=== PATIENT | male | born 1930 | race Caucasian/White ===

== ENCOUNTER → 2018-11-26 | Outpatient (CLI) | payer OTHER ==
[~2018-11-26] MED LIST: ASPI81TA27 PO; ATOR40TA52 PO; DONE5TAB11 PO; GEMF600T7 PO; METO25TA5 PO
[2018-11-26 09:45] LABS: Basophils # (auto) 0 uL; Basophils % (auto) 0.1 % (0.0-2.0); Eosinophils # (auto) 0.1 uL; Eosinophils % (auto) 0.9 % (0.0-7.0); Hematocrit 42.7 % (41.0-53.0); Hemoglobin 13.9 g/dL (13.5-17.5); Lymphocytes # (auto) 1.5 uL; Lymphocytes % (auto) 12.6 % (10.0-50.0); Mean Corpuscular Hemoglobin 29.1 pg (28.0-32.0); Mean Corpuscular Hgb Conc. 32.5 g/dL (32.0-36.0); Mean Corpuscular Volume 89.6 fL (80.0-100.0); Monocytes # (auto) 0.8 uL; Monocytes % (auto) 6.7 % (0.0-12.0); Neutrophils # (auto) 9.3 uL; Neutrophils % (auto) 79.7 % (37.0-80.0); Platelet Count (auto) 213 10^3/uL (140-450); Red Blood Cells 4.77 10^6/uL (4.5-5.90); Red Cell Distribution Width 14.6 % (11.8-14.3); White Blood Cell 11.7 10^3/uL (4.4-10.8)
[2018-11-26 10:44] LABS: Free T4 (Free Thyroxine) 0.91 ng/dL (0.89-1.76)
[2018-11-26 10:45] LABS: Folate (Folic Acid) > 24.00 ng/mL (5.38-24)
[2018-11-26 10:47] LABS: Cholesterol 138 mg/dL (< 200); HDL Cholesterol 35 mg/dL (40-59); LDL Cholesterol 62 mg/dL (< 100); Triglycerides 271 mg/dL (< 150)
== END | disposition home or self-care (01) ==
LOC: LAB 08:40
PROVIDERS: ATTEND Internal Medicine
DX: I10 Essential (primary) hypertension (principal); F03.90 Unspecified dementia, unspecified severity, without behavioral disturbance, psychotic disturbance, mood disturbance, and anxiety; E78.5 Hyperlipidemia, unspecified
CPT/HCPCS: 36415; 80061; 82607; 82746; 83036; 84439; 84443; 85025

== ENCOUNTER 2019-01-06 13:40 | Inpatient (IN) | payer OTHER ==
[~2019-01-06] VITALS: Ht 185.4 cm; Wt 81.6 kg
[2019-01-06 14:44] LABS: Basophils # (auto) 0 uL; Basophils % (auto) 0.5 % (0.0-2.0); Eosinophils # (auto) 0.4 uL; Eosinophils % (auto) 3.9 % (0.0-7.0); Hematocrit 41.7 % (41.0-53.0); Hemoglobin 13.5 g/dL (13.5-17.5); Lymphocytes # (auto) 1.5 uL; Mean Corpuscular Hgb Conc. 32.4 g/dL (32.0-36.0); Mean Corpuscular Volume 89.4 fL (80.0-100.0); Monocytes # (auto) 0.6 uL; Monocytes % (auto) 6.8 % (0.0-12.0); Neutrophils # (auto) 6.6 uL; Neutrophils % (auto) 72.8 % (37.0-80.0); Platelet Count (auto) 196 10^3/uL (140-450); Red Blood Cells 4.67 10^6/uL (4.5-5.90); Red Cell Distribution Width 14.6 % (11.8-14.3); White Blood Cell 9.1 10^3/uL (4.4-10.8)
[2019-01-06] MEDS ORDERED: SODIUM CHLORIDE 0.9% 1,000 ML IVB ONE (14:54)
[2019-01-06 15:00] LABS: Albumin 3.4 g/dL (3.4-5.0); BUN/Creatinine Ratio 13.2; Calcium 8.8 mg/dL (8.5-10.1); Magnesium 2.8 mg/dL (1.6-2.6); Potassium 4.4 mmol/L (3.5-5.1)
[2019-01-06 15:03] LABS: Bilirubin, Total 0.9 mg/dL (0.2-1.0); Total Protein 7.5 g/dL (6.4-8.2)
[2019-01-06] MEDS ORDERED: cefTRIAXone 1GM/50ML D5W 50 ML IV ONE (15:15)
[2019-01-06] MEDS ORDERED: SODIUM CHLORIDE 0.9% 1,000 ML IV SCH (16:08)
[2019-01-06] MEDS ORDERED: ONDANSETRON HCL 4 MG/2 ML VIAL IV PRN (16:15)
[2019-01-06] MEDS ORDERED: ALBUTEROL SULF 2.5 MG/0.5ML(0.5%) NEB SOLN NEB PRN (16:15)
[2019-01-06] MEDS ORDERED: TEMAZEPAM 15 MG CAP PO PRN (16:15)
[2019-01-06] MEDS ORDERED: NITROGLYCERIN 0.4 MG SL TAB SL PRN (16:15)
[2019-01-06] MEDS ORDERED: MORPHINE SULF INJ 2 MG/ML SYRINGE 1ML IV PRN (16:15)
[2019-01-06] MEDS ORDERED: traMADol HCL 50 MG TAB PO PRN (16:15)
[2019-01-06] MEDS ORDERED: LACTULOSE 20Gm/30ML SOLN PO PRN (16:15)
[2019-01-06 16:35] VITALS: BP 120/57
[2019-01-06 16:45] VITALS: BP 122/63
[2019-01-06 18:03] LABS: Urine Bacteria NONE SEEN /hpf (None Seen); Urine Blood Negative /uL (Negative); Urine Specific Gravity 1.013 (1.001-1.035); Urine WBC <1 /hpf (0 - 3)
--- NOTE | 2019-01-06 18:06 | NUR ---
PRN MED NEB ASSESSMENT. PT DENIES SOB. NO DISTRESS NOTED AT THIS TIME. RA POX 96% HR 70 RR 18 BS ARE CLEAR AND DIMINISHED. TX NOT GIVEN.
[2019-01-06] MEDS ORDERED: LORazepam 0.5 MG TAB PO PRN (20:00)
[2019-01-06] MEDS ORDERED: METOPROLOL TARTRATE 25 MG TAB PO SCH (22:00)
[2019-01-06] MEDS ORDERED: DONEPEZIL HYDROCHLORIDE 5 MG TAB PO SCH (22:00)
[2019-01-06] MEDS ORDERED: GEMFIBROZIL 600 MG TAB PO SCH (22:00)
[2019-01-07] MEDS ORDERED: PANTOPRAZOLE 40 MG TAB PO SCH (10:00)
[2019-01-07] MEDS ORDERED: ASPirin-EC 81 mg tab PO SCH (10:00)
[2019-01-07] MEDS ORDERED: ENOXAPARIN SOD 40 MG/0.4 ML SYRINGE SC SCH (10:00)
== END 2019-01-06 17:17 | disposition left against medical advice (07) | DRG 190 ==
LOC: EDBD 13:40 → ER 13:40 → TELE 16:12
PROVIDERS: ADMIT Internal Medicine; ATTEND Internal Medicine
DX: J44.0 Chronic obstructive pulmonary disease with (acute) lower respiratory infection (principal); J18.9 Pneumonia, unspecified organism; E78.5 Hyperlipidemia, unspecified; F03.90 Unspecified dementia, unspecified severity, without behavioral disturbance, psychotic disturbance, mood disturbance, and anxiety; I11.0 Hypertensive heart disease with heart failure; I25.10 Atherosclerotic heart disease of native coronary artery without angina pectoris; Z53.21 Procedure and treatment not carried out due to patient leaving prior to being seen by health care provider; I50.9 Heart failure, unspecified; I67.2 Cerebral atherosclerosis; I70.0 Atherosclerosis of aorta; Z79.82 Long term (current) use of aspirin; I25.2 Old myocardial infarction; Z79.899 Other long term (current) drug therapy
CPT/HCPCS: 36415; 70450; 71045; 80053; 81001; 83605; 83735; 85025; 87040; 87076; 93005; 94761; 96361; 96365; G0378; J0696

== ENCOUNTER → 2019-04-14 | Outpatient (CLI) | payer OTHER ==
[2019-04-14 08:25] LABS: Basophils # (auto) 0 uL; Basophils % (auto) 0.7 % (0.0-2.0); Eosinophils # (auto) 0.5 uL; Eosinophils % (auto) 7.2 % (0.0-7.0); Hematocrit 41.4 % (41.0-53.0); Hemoglobin 13.4 g/dL (13.5-17.5); Lymphocytes # (auto) 1.7 uL; Lymphocytes % (auto) 24.8 % (10.0-50.0); Mean Corpuscular Hemoglobin 28.9 pg (28.0-32.0); Mean Corpuscular Hgb Conc. 32.5 g/dL (32.0-36.0); Monocytes # (auto) 0.5 uL; Monocytes % (auto) 7.4 % (0.0-12.0); Neutrophils # (auto) 4.2 uL; Neutrophils % (auto) 59.9 % (37.0-80.0); Nucleated Red Blood Cells % 0.1 %; Platelet Count (auto) 195 10^3/uL (140-450); Red Blood Cells 4.65 10^6/uL (4.5-5.90); Red Cell Distribution Width 14.1 % (11.8-14.3); White Blood Cell 7.1 10^3/uL (4.4-10.8)
[2019-04-14 08:41] LABS: Albumin 3.4 g/dL (3.4-5.0); Calcium 8.8 mg/dL (8.5-10.1); Potassium 4.3 mmol/L (3.5-5.1)
[2019-04-14 08:44] LABS: BUN/Creatinine Ratio 9.7; Bilirubin, Total 0.5 mg/dL (0.2-1.0); Total Protein 7.4 g/dL (6.4-8.2)
== END | disposition home or self-care (01) ==
LOC: LAB 08:09
PROVIDERS: ATTEND Internal Medicine
DX: I10 Essential (primary) hypertension (principal)
CPT/HCPCS: 36415; 80053; 85025

== ENCOUNTER → 2019-11-10 | Outpatient (CLI) | payer OTHER ==
[~2019-11-10] MED LIST changes: +ASPI-404 PO; -ASPI81TA27 PO
[2019-11-10 12:13] LABS: Urine WBC None Seen /hpf (0 - 3)
[2019-11-10 12:29] LABS: Basophils # (auto) 0 uL; Basophils % (auto) 0.4 % (0.0-2.0); Eosinophils # (auto) 0.5 uL; Eosinophils % (auto) 5.3 % (0.0-7.0); Hematocrit 46.3 % (41.0-53.0); Lymphocytes # (auto) 2.5 uL; Mean Corpuscular Hgb Conc. 32.4 g/dL (32.0-36.0); Mean Corpuscular Volume 89.4 fL (80.0-100.0); Monocytes # (auto) 0.6 uL; Monocytes % (auto) 6.2 % (0.0-12.0); Neutrophils # (auto) 6.1 uL; Neutrophils % (auto) 62.1 % (37.0-80.0); Platelet Count (auto) 215 10^3/uL (140-450); Red Blood Cells 5.18 10^6/uL (4.5-5.90); Red Cell Distribution Width 14.1 % (11.8-14.3); White Blood Cell 9.8 10^3/uL (4.4-10.8)
[2019-11-10 12:31] LABS: Urine Bacteria NONE SEEN /hpf (None Seen); Urine Blood Negative /uL (Negative); Urine Mucus FEW (None Seen); Urine Specific Gravity 1.018 (1.001-1.035)
[2019-11-10 12:39] LABS: Albumin 3.8 g/dL (3.4-5.0); Potassium 4.5 mmol/L (3.5-5.1)
[2019-11-10 12:43] LABS: BUN/Creatinine Ratio 14.3; Bilirubin, Total 0.6 mg/dL (0.2-1.0); Total Protein 7.8 g/dL (6.4-8.2)
== END | disposition home or self-care (01) ==
LOC: LAB 12:09
PROVIDERS: ATTEND Nurse Practitioner
DX: Z00.00 Encounter for general adult medical examination without abnormal findings (principal); E78.5 Hyperlipidemia, unspecified
CPT/HCPCS: 36415; 80053; 80061; 81001; 84443; 85025

== ENCOUNTER 2020-07-29 19:31 | Inpatient (IN) | payer OTHER ==
[~2020-07-29] VITALS: Ht 177.8 cm; Wt 73.8 kg
[~2020-07-29 19:31] MED LIST changes: -ASPI-404 PO; +ASPI-543 PO
[2020-07-29 20:42] LABS: Basophils # (auto) 0 10 ^3/uL (0-0.2); Basophils % (auto) 0.2 % (0.0-2.0); Eosinophils # (auto) 0.1 10 ^3/uL (0-0.8); Eosinophils % (auto) 0.6 % (0.0-7.0); Hematocrit 37.1 % (41.0-53.0); Hemoglobin 12.4 g/dL (13.5-17.5); Lymphocytes # (auto) 1.1 10 ^3/uL (0.4-5.4); Mean Corpuscular Hemoglobin 29.8 pg (28.0-32.0); Mean Corpuscular Hgb Conc. 33.3 g/dL (32.0-36.0); Mean Corpuscular Volume 89.5 fL (80.0-100.0); Monocytes # (auto) 0.7 10 ^3/uL (0-1.3); Monocytes % (auto) 6.5 % (0.0-12.0); Neutrophils # (auto) 8.3 10 ^3/uL (1.6-8.6); Neutrophils % (auto) 81.7 % (37.0-80.0); Nucleated Red Blood Cells % 0.1 %; Platelet Count (auto) 189 10^3/uL (140-450); Red Blood Cells 4.15 10^6/uL (4.5-5.90); Red Cell Distribution Width 13.6 % (11.8-14.3); White Blood Cell 10.2 10^3/uL (4.4-10.8)
[2020-07-29 20:57] LABS: Albumin 2.6 g/dL (3.4-5.0); Anion Gap 7 (5-15); Blood Urea Nitrogen 17 mg/dL (7-18); Calcium 8.5 mg/dL (8.5-10.1); Carbon Dioxide 24 mmol/L (21-32); Chloride 108 mmol/L (98-107); Glucose 123 mg/dL (74-106); Potassium 3.6 mmol/L (3.5-5.1); Sodium 139 mmol/L (136-145)
[2020-07-29 20:59] LABS: BUN/Creatinine Ratio 14.8; GFR African American 77 mL/min; GFR Non-African American 64 mL/min; INR 1.03 (0.9-1.15)
[2020-07-29 21:06] LABS: Alanine Aminotransferase 504 U/L (16-61); Alkaline Phosphatase 311 U/L (45-117); Aspartate Aminotransferase 446 U/L (15-37); Bilirubin, Total 1.5 mg/dL (0.2-1.0); Total Protein 6.9 g/dL (6.4-8.2)
[2020-07-29] MEDS ORDERED: ONDANSETRON HCL 4 MG/2 ML VIAL IV PRN (23:15)
[2020-07-29] MEDS ORDERED: HYDROcodone-ACET 5/325MG TAB PO PRN (23:15)
[2020-07-29] MEDS ORDERED: DOCUSATE SOD 100 MG CAP PO PRN (23:15)
[2020-07-29] MEDS: SODIUM CHLORIDE 0.9% 1,000 ML IV SCH (23:28)
[2020-07-30 04:08] LABS: Urine Bacteria FEW /hpf (None Seen); Urine Blood Negative /uL (Negative); Urine Mucus FEW (None Seen); Urine Specific Gravity 1.027 (1.001-1.035); Urine WBC 1 /hpf (0 - 3)
[2020-07-30 05:21] LABS: Basophils # (auto) 0 10 ^3/uL (0-0.2); Basophils % (auto) 0.2 % (0.0-2.0); Eosinophils # (auto) 0.2 10 ^3/uL (0-0.8); Eosinophils % (auto) 2.3 % (0.0-7.0); Hematocrit 36.5 % (41.0-53.0); Hemoglobin 12.1 g/dL (13.5-17.5); Lymphocytes # (auto) 1.3 10 ^3/uL (0.4-5.4); Lymphocytes % (auto) 13.7 % (10.0-50.0); Mean Corpuscular Hemoglobin 29.6 pg (28.0-32.0); Mean Corpuscular Volume 89.5 fL (80.0-100.0); Monocytes # (auto) 0.7 10 ^3/uL (0-1.3); Monocytes % (auto) 7.9 % (0.0-12.0); Neutrophils # (auto) 7.1 10 ^3/uL (1.6-8.6); Neutrophils % (auto) 75.9 % (37.0-80.0); Platelet Count (auto) 184 10^3/uL (140-450); Red Blood Cells 4.08 10^6/uL (4.5-5.90); Red Cell Distribution Width 14.2 % (11.8-14.3); White Blood Cell 9.4 10^3/uL (4.4-10.8)
[2020-07-30 05:40] LABS: Anion Gap 4 (5-15); Blood Urea Nitrogen 19 mg/dL (7-18); Calcium 8.6 mg/dL (8.5-10.1); Carbon Dioxide 25 mmol/L (21-32); Chloride 110 mmol/L (98-107); Glucose 107 mg/dL (74-106); Potassium 3.5 mmol/L (3.5-5.1); Sodium 139 mmol/L (136-145)
[2020-07-30 05:46] LABS: BUN/Creatinine Ratio 17.6; GFR African American 83 mL/min; GFR Non-African American 69 mL/min
[2020-07-30] MEDS ORDERED: cefTRIAXone 1GM/50ML D5W 50 ML IV SCH (10:00)
[2020-07-30] MEDS ORDERED: LORazepam 2MG/ML-1ML VIAL IM ONE (12:15)
[2020-07-30] MEDS ORDERED: LORazepam 2MG/ML-1ML VIAL IV PRN (17:15)
[2020-07-30] MEDS: SODIUM CHLORIDE 0.9% 1,000 ML IV SCH (19:05)
[2020-07-30] MEDS: DONEPEZIL HYDROCHLORIDE 5 MG TAB PO SCH (21:27)
[2020-07-30 21:38] VITALS: BP 148/86
[2020-07-30 22:00] VITALS: BP 148/86
[2020-07-30 22:37] LABS: Folate (Folic Acid) > 24.00 ng/mL (5.38-24)
[2020-07-31] MEDS ORDERED: MULTCAP45 PO (03:38)
[2020-07-31 05:00] VITALS: BP 148/82
[2020-07-31 07:23] LABS: Albumin 2.5 g/dL (3.4-5.0); Bilirubin, Direct 0.4 mg/dL (0-0.2)
[2020-07-31 07:26] LABS: Total Protein 6.4 g/dL (6.4-8.2)
[2020-07-31 07:36] LABS: Cholesterol 109 mg/dL (< 200); HDL Cholesterol 26 mg/dL (40-59); LDL Cholesterol 76 mg/dL (< 100); Triglycerides 110 mg/dL (< 150)
[2020-07-31 08:00] VITALS: BP 131/78
[2020-07-31] MEDS: SODIUM CHLORIDE 0.9% 1,000 ML IV SCH (08:35)
[2020-07-31 09:00] VITALS: BP 131/78
[2020-07-31] MEDS ORDERED: LACTULOSE 20Gm/30ML SOLN PO PRN (09:15)
[2020-07-31 17:00] VITALS: BP 150/92
[2020-07-31] MEDS: HALOPERIDOL LACTATE 5 MG/ML INJ VIAL IM PRN (20:40)
[2020-07-31] MEDS: DONEPEZIL HYDROCHLORIDE 5 MG TAB PO SCH (21:41)
[2020-07-31 22:00] VITALS: BP 145/78
[2020-08-01] MEDS: SODIUM CHLORIDE 0.9% 1,000 ML IV SCH ×2 (01:20→19:23)
[2020-08-01 06:27] LABS: Potassium 3.2 mmol/L (3.5-5.1)
[2020-08-01 06:37] LABS: Albumin 2.4 g/dL (3.4-5.0); BUN/Creatinine Ratio 14.4; Bilirubin, Total 1.3 mg/dL (0.2-1.0); Calcium 8.2 mg/dL (8.5-10.1); Magnesium 2.5 mg/dL (1.6-2.6); Total Protein 6.2 g/dL (6.4-8.2)
[2020-08-01 08:59] VITALS: BP 146/78
[2020-08-01 14:02] VITALS: BP 138/77
[2020-08-01] MEDS ORDERED: cefTRIAXone 1GM/50ML D5W 50 ML IV ONE (14:15)
[2020-08-01] MEDS ORDERED: metroNIDAZOLE 500MG/100ML 100 ML IV ONE (14:15)
[2020-08-01] MEDS: POTASSIUM CHL 20MEQ/100ML 100 ML IV SCH ×2 (16:40→19:23)
[2020-08-01 16:48] VITALS: BP 150/91
[2020-08-01 21:00] VITALS: BP 145/73
[2020-08-01] MEDS: metroNIDAZOLE 500MG/100ML 100 ML IV SCH (22:09)
[2020-08-01] MEDS: DONEPEZIL HYDROCHLORIDE 5 MG TAB PO SCH (22:09)
[2020-08-02 05:00] VITALS: BP 138/71
[2020-08-02] MEDS: metroNIDAZOLE 500MG/100ML 100 ML IV SCH ×3 (05:47→22:29)
[2020-08-02 06:02] LABS: Basophils # (auto) 0 10 ^3/uL (0-0.2); Basophils % (auto) 0.3 % (0.0-2.0); Eosinophils # (auto) 0.2 10 ^3/uL (0-0.8); Eosinophils % (auto) 1.2 % (0.0-7.0); Hematocrit 34.5 % (41.0-53.0); Hemoglobin 11.3 g/dL (13.5-17.5); Lymphocytes # (auto) 1.1 10 ^3/uL (0.4-5.4); Lymphocytes % (auto) 8.2 % (10.0-50.0); Mean Corpuscular Hemoglobin 29.6 pg (28.0-32.0); Mean Corpuscular Hgb Conc. 32.7 g/dL (32.0-36.0); Mean Corpuscular Volume 90.5 fL (80.0-100.0); Monocytes # (auto) 0.9 10 ^3/uL (0-1.3); Monocytes % (auto) 6.4 % (0.0-12.0); Neutrophils # (auto) 11.6 10 ^3/uL (1.6-8.6); Neutrophils % (auto) 83.9 % (37.0-80.0); Platelet Count (auto) 235 10^3/uL (140-450); Red Blood Cells 3.81 10^6/uL (4.5-5.90); Red Cell Distribution Width 13.8 % (11.8-14.3); White Blood Cell 13.8 10^3/uL (4.4-10.8)
[2020-08-02 06:22] LABS: Albumin 2.3 g/dL (3.4-5.0); BUN/Creatinine Ratio 14.5; Calcium 8.7 mg/dL (8.5-10.1); Potassium 3.5 mmol/L (3.5-5.1)
[2020-08-02 06:25] LABS: Total Protein 6.4 g/dL (6.4-8.2)
[2020-08-02 08:02] VITALS: BP 125/61
[2020-08-02] MEDS ORDERED: cefTRIAXone 1GM/50ML D5W 50 ML IV SCH (09:00)
[2020-08-02] MEDS ORDERED: MIDAZOLAM HCL 1MG/1ML-2 ML VIAL ONE (09:32)
[2020-08-02] MEDS ORDERED: MEPERIDINE HCL (25 MG/ML) 1ML VIAL ONE (09:32)
[2020-08-02] MEDS ORDERED: fentaNYL CITRATE 100 MCG/2 ML VL ONE (09:32)
[2020-08-02] MEDS ORDERED: POVIDONE IODINE 10 % TOPICAL OINT 30GM TOP ONE (09:35)
[2020-08-02] MEDS ORDERED: ETOMIDATE (2MG/ML) 20ML VIAL IV ONE (09:41)
[2020-08-02] MEDS ORDERED: DexAMETHasone SOD PHOS 10MG/1ML VIAL INJ ONE (09:41)
[2020-08-02 09:53] LABS: INR 1.1 (0.9-1.15); Partial Thromboplastin Time 36.6 sec (23.0-31.2)
[2020-08-02] MEDS: SODIUM CHLORIDE 0.9% 1,000 ML IV SCH (10:35)
[2020-08-02] MEDS ORDERED: BUPIVACAINE 0.25% INJ 50ML VIAL ONE (10:47)
[2020-08-02 10:52] LABS: Hepatitis B Surface Antibody Negative
[2020-08-02] MEDS ORDERED: NEOSTIGMINE 1 MG/ML INJ (10mg/10ML VIAL) ONE (10:53)
[2020-08-02] MEDS ORDERED: PHENYLEPHRINE HCL 10 MG/ML VL ONE (10:53)
[2020-08-02] MEDS ORDERED: GLYCOPYRROLATE 0.2 MG/ML 1ML VIAL ONE (10:53)
[2020-08-02] MEDS ORDERED: MIDAZOLAM HCL 1MG/1ML-2 ML VIAL IV PRN (11:00)
[2020-08-02] MEDS ORDERED: LABETALOL HCL 5 MG/ML 4ML SYRINGE IV PRN (11:00)
[2020-08-02] MEDS ORDERED: MORPHINE SULFATE 4 MG/ML SYR/VIAL IV PRN (11:00)
[2020-08-02] MEDS ORDERED: ONDANSETRON HCL 4 MG/2 ML VIAL IV PRN (11:00)
[2020-08-02] MEDS ORDERED: ePHEDrine SULFATE 50 MG/ML AMP IV PRN (11:00)
[2020-08-02 11:25] LABS: Hepatitis A Total Antibody Negative
[2020-08-02 13:23] LABS: Hepatitis C Antibody Negative (Negative)
[2020-08-02 13:24] LABS: Hepatitis B Core Total AB Negative; Hepatitis B Surface Antigen Negative (Negative)
[2020-08-02 13:25] VITALS: BP 150/61
[2020-08-02] MEDS: D5W/SOD CHL 0.45%/KCL 20MEQ 1,000 ML IV SCH ×2 (17:15→22:29)
[2020-08-02 17:42] VITALS: BP 156/76
[2020-08-02 20:00] VITALS: BP 130/85
[2020-08-02 21:00] VITALS: BP 130/85
[2020-08-02 21:29] LABS: Urine Bacteria FEW /hpf (None Seen); Urine Blood Negative /uL (Negative); Urine Mucus FEW (None Seen); Urine Specific Gravity 1.019 (1.001-1.035); Urine WBC 3 /hpf (0 - 3)
[2020-08-02] MEDS: DONEPEZIL HYDROCHLORIDE 5 MG TAB PO SCH (22:28)
[2020-08-03] VITALS (7 sets, daily range): BP systolic 130–156; BP diastolic 70–85
[2020-08-03] MEDS: metroNIDAZOLE 500MG/100ML 100 ML IV SCH ×2 (06:01→14:20)
[2020-08-03 06:55] LABS: Basophils # (auto) 0 10 ^3/uL (0-0.2); Eosinophils # (auto) 0 10 ^3/uL (0-0.8); Hematocrit 34.4 % (41.0-53.0); Hemoglobin 11.4 g/dL (13.5-17.5); Lymphocytes # (auto) 0.9 10 ^3/uL (0.4-5.4); Mean Corpuscular Hemoglobin 29.6 pg (28.0-32.0); Monocytes # (auto) 0.8 10 ^3/uL (0-1.3); Monocytes % (auto) 4.3 % (0.0-12.0); Neutrophils # (auto) 16.2 10 ^3/uL (1.6-8.6); Neutrophils % (auto) 90.7 % (37.0-80.0); Nucleated Red Blood Cells % 0.1 %; Platelet Count (auto) 270 10^3/uL (140-450); Red Blood Cells 3.83 10^6/uL (4.5-5.90); Red Cell Distribution Width 13.5 % (11.8-14.3); White Blood Cell 17.8 10^3/uL (4.4-10.8)
[2020-08-03 07:07] LABS: Albumin 2.2 g/dL (3.4-5.0); BUN/Creatinine Ratio 14.4; Calcium 8.2 mg/dL (8.5-10.1); Magnesium 2.3 mg/dL (1.6-2.6); Potassium 3.6 mmol/L (3.5-5.1)
[2020-08-03 07:10] LABS: Bilirubin, Total 0.8 mg/dL (0.2-1.0); Total Protein 6.5 g/dL (6.4-8.2)
[2020-08-03] MEDS: PIPERACILLIN-TAZOB 3.375GM 100 ML IV SCH ×2 (12:06→18:31)
[2020-08-03] MEDS: ACETAMINOPHEN 325 MG TAB PO PRN ×2 (15:09→21:23)
[2020-08-03] MEDS: DONEPEZIL HYDROCHLORIDE 5 MG TAB PO SCH (21:45)
[2020-08-04] MEDS: PIPERACILLIN-TAZOB 3.375GM 100 ML IV SCH ×2 (00:09→05:47)
[2020-08-04] MEDS: HYDROmorphone HCL 2 MG/ML VL IV PRN ×3 (01:47→14:13)
[2020-08-04] MEDS: D5W/SOD CHL 0.45%/KCL 20MEQ 1,000 ML IV SCH ×2 (04:09→21:07)
[2020-08-04 05:00] VITALS: BP 151/93
[2020-08-04 05:29] LABS: Basophils # (auto) 0 10 ^3/uL (0-0.2); Basophils % (auto) 0.1 % (0.0-2.0); Eosinophils # (auto) 0.2 10 ^3/uL (0-0.8); Eosinophils % (auto) 1.2 % (0.0-7.0); Hematocrit 36.8 % (41.0-53.0); Hemoglobin 11.8 g/dL (13.5-17.5); Lymphocytes # (auto) 1.6 10 ^3/uL (0.4-5.4); Mean Corpuscular Hemoglobin 28.8 pg (28.0-32.0); Mean Corpuscular Volume 89.8 fL (80.0-100.0); Monocytes # (auto) 0.6 10 ^3/uL (0-1.3); Monocytes % (auto) 4.5 % (0.0-12.0); Neutrophils # (auto) 10.9 10 ^3/uL (1.6-8.6); Neutrophils % (auto) 82.2 % (37.0-80.0); Platelet Count (auto) 301 10^3/uL (140-450); Red Cell Distribution Width 14.1 % (11.8-14.3); White Blood Cell 13.2 10^3/uL (4.4-10.8)
[2020-08-04 06:14] LABS: Potassium 3.3 mmol/L (3.5-5.1)
[2020-08-04 06:21] LABS: Albumin 2.2 g/dL (3.4-5.0); BUN/Creatinine Ratio 14.3; Calcium 8.5 mg/dL (8.5-10.1)
[2020-08-04 06:25] LABS: Bilirubin, Total 0.9 mg/dL (0.2-1.0); Total Protein 6.5 g/dL (6.4-8.2)
[2020-08-04 09:25] VITALS: BP 148/92
[2020-08-04] MEDS ORDERED: DONE5TAB31 PO (09:30)
[2020-08-04] MEDS ORDERED: GEMF600T7 PO (09:30)
[2020-08-04] MEDS ORDERED: MET50T PO (09:30)
[2020-08-04] MEDS ORDERED: cefTRIAXone 1GM/50ML D5W 50 ML IV ONE (10:00)
[2020-08-04 13:50] VITALS: BP 118/79
[2020-08-04 16:24] VITALS: BP 165/94
[2020-08-04] MEDS: DONEPEZIL HYDROCHLORIDE 5 MG TAB PO SCH (21:08)
[2020-08-04 21:30] VITALS: BP 151/72
[2020-08-05 05:00] VITALS: BP 127/66
[2020-08-05] MEDS: cefTRIAXone 1GM/50ML D5W 50 ML IV SCH (09:04)
[2020-08-05 09:18] VITALS: BP 135/67
[2020-08-05] MEDS: D5W/SOD CHL 0.45%/KCL 20MEQ 1,000 ML IV SCH ×3 (10:37→22:29)
[2020-08-05 13:59] VITALS: BP 125/72
[2020-08-05 16:18] VITALS: BP 148/80
[2020-08-05 21:56] VITALS: BP 135/73
[2020-08-05] MEDS: DONEPEZIL HYDROCHLORIDE 5 MG TAB PO SCH (22:22)
[2020-08-06 04:34] VITALS: BP 135/73
[2020-08-06 05:00] VITALS: BP 150/82
[2020-08-06 05:48] LABS: Basophils # (auto) 0.1 10 ^3/uL (0-0.2); Basophils % (auto) 0.3 % (0.0-2.0); Eosinophils # (auto) 0.4 10 ^3/uL (0-0.8); Eosinophils % (auto) 2.3 % (0.0-7.0); Hematocrit 36.7 % (41.0-53.0); Hemoglobin 11.9 g/dL (13.5-17.5); Lymphocytes # (auto) 1.4 10 ^3/uL (0.4-5.4); Lymphocytes % (auto) 7.7 % (10.0-50.0); Mean Corpuscular Hgb Conc. 32.4 g/dL (32.0-36.0); Mean Corpuscular Volume 89.6 fL (80.0-100.0); Monocytes # (auto) 0.9 10 ^3/uL (0-1.3); Neutrophils # (auto) 15.6 10 ^3/uL (1.6-8.6); Neutrophils % (auto) 84.7 % (37.0-80.0); Platelet Count (auto) 307 10^3/uL (140-450); Red Cell Distribution Width 13.8 % (11.8-14.3); White Blood Cell 18.5 10^3/uL (4.4-10.8)
[2020-08-06] MEDS: D5W/SOD CHL 0.45%/KCL 20MEQ 1,000 ML IV SCH ×2 (08:15→11:00)
[2020-08-06 08:33] VITALS: BP 148/84
[2020-08-06] MEDS: cefTRIAXone 1GM/50ML D5W 50 ML IV SCH (09:15)
[2020-08-06] MEDS ORDERED: levoFLOXacin 750MG 150 ML IV ONE (11:00)
[2020-08-06] MEDS ORDERED: METOPROLOL TARTRATE 25 MG TAB PO ONE (11:00)
[2020-08-06] MEDS ORDERED: IOHEXOL 300 MG/ML 100ML BOTTLE IJ ONE (11:21)
[2020-08-06 12:51] VITALS: BP 114/66
[2020-08-06] MEDS: AMPICILLIN & SULBACTAM SODIUM 3 GM in SODIUM CHL 0.9% 100 ML IV SCH ×2 (15:12→21:36)
[2020-08-06 16:51] VITALS: BP 127/76
[2020-08-06] MEDS: DONEPEZIL HYDROCHLORIDE 5 MG TAB PO SCH (21:40)
[2020-08-06] MEDS: METOPROLOL TARTRATE 25 MG TAB PO SCH (21:41)
[2020-08-06 21:52] VITALS: BP 126/68
[2020-08-07] MEDS: D5W/SOD CHL 0.45%/KCL 20MEQ 1,000 ML IV SCH (03:39)
[2020-08-07 05:00] VITALS: BP 139/93
[2020-08-07] MEDS: AMPICILLIN & SULBACTAM SODIUM 3 GM in SODIUM CHL 0.9% 100 ML IV SCH ×3 (05:02→21:00)
[2020-08-07 07:08] LABS: Basophils # (auto) 0 10 ^3/uL (0-0.2); Basophils % (auto) 0.1 % (0.0-2.0); Eosinophils # (auto) 0.3 10 ^3/uL (0-0.8); Eosinophils % (auto) 1.6 % (0.0-7.0); Hematocrit 36.5 % (41.0-53.0); Hemoglobin 11.5 g/dL (13.5-17.5); Lymphocytes # (auto) 1.2 10 ^3/uL (0.4-5.4); Lymphocytes % (auto) 7.2 % (10.0-50.0); Mean Corpuscular Hemoglobin 28.4 pg (28.0-32.0); Mean Corpuscular Hgb Conc. 31.6 g/dL (32.0-36.0); Mean Corpuscular Volume 90.1 fL (80.0-100.0); Monocytes # (auto) 0.9 10 ^3/uL (0-1.3); Monocytes % (auto) 5.5 % (0.0-12.0); Neutrophils % (auto) 85.6 % (37.0-80.0); Platelet Count (auto) 326 10^3/uL (140-450); Red Blood Cells 4.06 10^6/uL (4.5-5.90); Red Cell Distribution Width 13.8 % (11.8-14.3); White Blood Cell 16.3 10^3/uL (4.4-10.8)
[2020-08-07 07:39] LABS: Albumin 1.9 g/dL (3.4-5.0); Calcium 8.5 mg/dL (8.5-10.1); Magnesium 2.5 mg/dL (1.6-2.6); Potassium 3.8 mmol/L (3.5-5.1)
[2020-08-07 07:43] LABS: BUN/Creatinine Ratio 14.7; Bilirubin, Total 0.5 mg/dL (0.2-1.0)
[2020-08-07 10:18] VITALS: BP 128/73
[2020-08-07] MEDS: levoFLOXacin 750MG 150 ML IV SCH (10:30)
[2020-08-07 12:44] VITALS: BP 109/55
[2020-08-07] MEDS: METOPROLOL TARTRATE 25 MG TAB PO SCH ×2 (14:30→22:00)
[2020-08-07 17:00] VITALS: BP 144/77
[2020-08-07 22:00] VITALS: BP 144/93
[2020-08-07] MEDS: DONEPEZIL HYDROCHLORIDE 5 MG TAB PO SCH (22:00)
[2020-08-08] MEDS: D5W/SOD CHL 0.45%/KCL 20MEQ 1,000 ML IV SCH ×2 (03:00→21:28)
[2020-08-08 05:00] VITALS: BP 127/69
[2020-08-08] MEDS: AMPICILLIN & SULBACTAM SODIUM 3 GM in SODIUM CHL 0.9% 100 ML IV SCH ×3 (05:00→21:28)
[2020-08-08 06:04] LABS: Hematocrit 36.1 % (41.0-53.0); Hemoglobin 11.3 g/dL (13.5-17.5); Mean Corpuscular Hemoglobin 28.2 pg (28.0-32.0); Mean Corpuscular Hgb Conc. 31.4 g/dL (32.0-36.0); Mean Corpuscular Volume 89.9 fL (80.0-100.0); Platelet Count (auto) 357 10^3/uL (140-450); Red Blood Cells 4.02 10^6/uL (4.5-5.90); Red Cell Distribution Width 13.6 % (11.8-14.3); White Blood Cell 14.4 10^3/uL (4.4-10.8)
[2020-08-08 06:15] LABS: Band Neutrophils % (manual) 0; Basophils % (manual) 0 (0.0-2.0); Blast Cells 0; Metamyelocytes % 0; Promyelocytes % 0; Reactive Lymphocytes 0
[2020-08-08 06:27] LABS: Albumin 1.9 g/dL (3.4-5.0); Potassium 3.7 mmol/L (3.5-5.1)
[2020-08-08 06:31] LABS: Bilirubin, Direct 0.2 mg/dL (0-0.2); Bilirubin, Total 0.5 mg/dL (0.2-1.0); Total Protein 6.2 g/dL (6.4-8.2)
[2020-08-08 07:03] LABS: Eosinophils % (manual) 2 (0-7); Lymphocytes % (manual) 13 (10.0-50.0); Monocytes % (manual) 4 (0-12); Myelocytes % 1
[2020-08-08 09:00] VITALS: BP 117/68
[2020-08-08] MEDS: MEMANTINE HCL 5 MG TAB PO SCH (10:09)
[2020-08-08] MEDS: METOPROLOL TARTRATE 25 MG TAB PO SCH ×2 (10:09→22:00)
[2020-08-08] MEDS: levoFLOXacin 750MG 150 ML IV SCH (10:09)
[2020-08-08] MEDS ORDERED: POTASSIUM CHL 20 Meq TABLET PO ONE (12:15)
[2020-08-08 13:00] VITALS: BP 123/68
[2020-08-08 17:00] VITALS: BP 128/77
[2020-08-08 21:56] VITALS: BP 139/80
[2020-08-08] MEDS: DONEPEZIL HYDROCHLORIDE 5 MG TAB PO SCH (22:00)
[2020-08-09] MEDS: HALOPERIDOL LACTATE 5 MG/ML INJ VIAL IM PRN (01:20)
[2020-08-09 05:00] VITALS: BP 160/74
[2020-08-09] MEDS: AMPICILLIN & SULBACTAM SODIUM 3 GM in SODIUM CHL 0.9% 100 ML IV SCH ×3 (05:00→21:34)
[2020-08-09 08:40] VITALS: BP 135/82
[2020-08-09] MEDS: MEMANTINE HCL 5 MG TAB PO SCH (09:54)
[2020-08-09] MEDS: levoFLOXacin 750MG 150 ML IV SCH (09:55)
[2020-08-09] MEDS: METOPROLOL TARTRATE 25 MG TAB PO SCH ×2 (09:55→21:35)
[2020-08-09] MEDS ORDERED: POTASSIUM CHL 20 Meq TABLET PO ONE (12:30)
[2020-08-09 13:00] VITALS: BP 148/80
[2020-08-09 16:51] VITALS: BP 151/87
[2020-08-09] MEDS: D5W/SOD CHL 0.45%/KCL 20MEQ 1,000 ML IV SCH (19:00)
[2020-08-09] MEDS: DONEPEZIL HYDROCHLORIDE 5 MG TAB PO SCH (21:35)
[2020-08-09 22:00] VITALS: BP 127/74
[2020-08-10] MEDS: AMPICILLIN & SULBACTAM SODIUM 3 GM in SODIUM CHL 0.9% 100 ML IV SCH ×3 (04:50→21:29)
[2020-08-10 05:38] VITALS: BP 121/68
[2020-08-10 07:29] LABS: Hematocrit 37.1 % (41.0-53.0); Hemoglobin 12.2 g/dL (13.5-17.5); Mean Corpuscular Hemoglobin 29.2 pg (28.0-32.0); Mean Corpuscular Hgb Conc. 32.8 g/dL (32.0-36.0); Mean Corpuscular Volume 89.3 fL (80.0-100.0); Platelet Count (auto) 443 10^3/uL (140-450); Red Blood Cells 4.16 10^6/uL (4.5-5.90); Red Cell Distribution Width 13.7 % (11.8-14.3)
[2020-08-10 07:33] LABS: Basophils % (manual) 0 (0.0-2.0); Blast Cells 0; Metamyelocytes % 0; Myelocytes % 0; Promyelocytes % 0; Reactive Lymphocytes 0
[2020-08-10 07:42] LABS: INR 1.08 (0.9-1.15); Partial Thromboplastin Time 32.9 sec (23.0-31.2)
[2020-08-10 07:48] LABS: Albumin 2.2 g/dL (3.4-5.0); Bilirubin, Direct 0.3 mg/dL (0-0.2); Potassium 3.7 mmol/L (3.5-5.1)
[2020-08-10 07:51] LABS: Bilirubin, Total 0.6 mg/dL (0.2-1.0); Total Protein 7.1 g/dL (6.4-8.2)
[2020-08-10 07:56] LABS: BUN/Creatinine Ratio 9.3; Calcium 8.8 mg/dL (8.5-10.1); Potassium 3.7 mmol/L (3.5-5.1)
[2020-08-10 09:00] VITALS: BP 134/61
[2020-08-10] MEDS: MEMANTINE HCL 5 MG TAB PO SCH (10:00)
[2020-08-10] MEDS: METOPROLOL TARTRATE 25 MG TAB PO SCH ×2 (10:00→21:35)
[2020-08-10] MEDS: levoFLOXacin 750MG 150 ML IV SCH (10:45)
[2020-08-10 11:32] LABS: Band Neutrophils % (manual) 1; Eosinophils % (manual) 3 (0-7); Lymphocytes % (manual) 4 (10.0-50.0); Monocytes % (manual) 2 (0-12)
[2020-08-10] MEDS ORDERED: IOHEXOL 300 MG/ML 100ML BOTTLE IJ ONE (12:56)
[2020-08-10] MEDS ORDERED: fentaNYL CITRATE 100 MCG/2 ML VL ONE (13:19)
[2020-08-10] MEDS ORDERED: ONDANSETRON HCL 4 MG/2 ML VIAL ONE (13:19)
[2020-08-10] MEDS ORDERED: GLYCOPYRROLATE 0.2 MG/ML 1ML VIAL ONE (13:19)
[2020-08-10] MEDS ORDERED: MIDAZOLAM HCL 1MG/1ML-2 ML VIAL ONE (13:19)
[2020-08-10] MEDS ORDERED: PROPOFOL 10 MG/ML 20 ML IV ONE (13:19)
[2020-08-10] MEDS ORDERED: MORPHINE SULF INJ 2 MG/ML SYRINGE 1ML IV PRN (14:45)
[2020-08-10] MEDS ORDERED: ONDANSETRON HCL 4 MG/2 ML VIAL IV PRN (14:45)
[2020-08-10] MEDS: D5W/SOD CHL 0.45%/KCL 20MEQ 1,000 ML IV SCH (15:00)
[2020-08-10 17:00] VITALS: BP 124/63
[2020-08-10] MEDS: DONEPEZIL HYDROCHLORIDE 5 MG TAB PO SCH (21:34)
[2020-08-10] MEDS: HYDROmorphone HCL 2 MG/ML VL IV PRN (21:34)
[2020-08-10 22:00] VITALS: BP 156/91
[2020-08-11 05:00] VITALS: BP 152/64
[2020-08-11] MEDS: AMPICILLIN & SULBACTAM SODIUM 3 GM in SODIUM CHL 0.9% 100 ML IV SCH ×3 (05:30→21:06)
[2020-08-11 06:01] LABS: Basophils # (auto) 0 10 ^3/uL (0-0.2); Eosinophils # (auto) 0.1 10 ^3/uL (0-0.8); Eosinophils % (auto) 0.4 % (0.0-7.0); Monocytes # (auto) 0.7 10 ^3/uL (0-1.3); Neutrophils % (auto) 85.8 % (37.0-80.0)
[2020-08-11 06:05] LABS: Basophils % (auto) 0.3 % (0.0-2.0); Hematocrit 37.2 % (41.0-53.0); Lymphocytes # (auto) 1.3 10 ^3/uL (0.4-5.4); Lymphocytes % (auto) 8.7 % (10.0-50.0); Mean Corpuscular Hemoglobin 28.7 pg (28.0-32.0); Mean Corpuscular Hgb Conc. 32.3 g/dL (32.0-36.0); Mean Corpuscular Volume 88.8 fL (80.0-100.0); Monocytes % (auto) 4.8 % (0.0-12.0); Neutrophils # (auto) 13.1 10 ^3/uL (1.6-8.6); Platelet Count (auto) 443 10^3/uL (140-450); Red Blood Cells 4.19 10^6/uL (4.5-5.90); Red Cell Distribution Width 13.4 % (11.8-14.3); White Blood Cell 15.3 10^3/uL (4.4-10.8)
[2020-08-11 06:26] LABS: Potassium 3.8 mmol/L (3.5-5.1)
[2020-08-11 06:32] LABS: Albumin 2.1 g/dL (3.4-5.0); BUN/Creatinine Ratio 12.4; Bilirubin, Total 0.5 mg/dL (0.2-1.0); Calcium 8.7 mg/dL (8.5-10.1); Total Protein 6.6 g/dL (6.4-8.2)
[2020-08-11 08:00] VITALS: BP 146/74
[2020-08-11 09:00] VITALS: BP 146/74
[2020-08-11] MEDS: levoFLOXacin 750MG 150 ML IV SCH (10:32)
[2020-08-11] MEDS: METOPROLOL TARTRATE 25 MG TAB PO SCH ×2 (10:32→21:11)
[2020-08-11] MEDS: MEMANTINE HCL 5 MG TAB PO SCH (10:32)
[2020-08-11] MEDS: D5W/SOD CHL 0.45%/KCL 20MEQ 1,000 ML IV SCH (11:00)
[2020-08-11 13:00] VITALS: BP 122/46
[2020-08-11 17:00] VITALS: BP 124/68
[2020-08-11] MEDS: DONEPEZIL HYDROCHLORIDE 5 MG TAB PO SCH (21:07)
[2020-08-11] MEDS: HYDROmorphone HCL 2 MG/ML VL IV PRN (21:07)
[2020-08-11 21:47] VITALS: BP 120/63
[2020-08-12 05:00] VITALS: BP 149/70
[2020-08-12] MEDS: AMPICILLIN & SULBACTAM SODIUM 3 GM in SODIUM CHL 0.9% 100 ML IV SCH ×3 (05:42→20:45)
[2020-08-12] MEDS: D5W/SOD CHL 0.45%/KCL 20MEQ 1,000 ML IV SCH (07:00)
[2020-08-12 09:00] VITALS: BP 106/64
[2020-08-12] MEDS: levoFLOXacin 750MG 150 ML IV SCH (11:16)
[2020-08-12] MEDS: MEMANTINE HCL 5 MG TAB PO SCH (11:17)
[2020-08-12] MEDS: METOPROLOL TARTRATE 25 MG TAB PO SCH ×2 (11:18→22:05)
[2020-08-12 13:00] VITALS: BP 143/88
[2020-08-12 17:00] VITALS: BP 139/74
[2020-08-12 21:47] VITALS: BP 120/67
[2020-08-12] MEDS: DONEPEZIL HYDROCHLORIDE 5 MG TAB PO SCH (22:04)
[2020-08-13] MEDS: D5W/SOD CHL 0.45%/KCL 20MEQ 1,000 ML IV SCH (04:56)
[2020-08-13] MEDS: AMPICILLIN & SULBACTAM SODIUM 3 GM in SODIUM CHL 0.9% 100 ML IV SCH ×3 (04:56→21:44)
[2020-08-13 05:00] VITALS: BP 151/75
[2020-08-13 09:05] VITALS: BP 139/74
[2020-08-13] MEDS: METOPROLOL TARTRATE 25 MG TAB PO SCH ×2 (10:42→22:10)
[2020-08-13] MEDS: levoFLOXacin 750MG 150 ML IV SCH (10:42)
[2020-08-13] MEDS: MEMANTINE HCL 5 MG TAB PO SCH (10:42)
[2020-08-13 10:56] LABS: Basophils # (auto) 0.1 10 ^3/uL (0-0.2); Basophils % (auto) 0.4 % (0.0-2.0); Eosinophils # (auto) 0.2 10 ^3/uL (0-0.8); Eosinophils % (auto) 1.9 % (0.0-7.0); Hematocrit 32.9 % (41.0-53.0); Hemoglobin 10.6 g/dL (13.5-17.5); Lymphocytes # (auto) 1.4 10 ^3/uL (0.4-5.4); Lymphocytes % (auto) 11.5 % (10.0-50.0); Mean Corpuscular Hgb Conc. 32.3 g/dL (32.0-36.0); Mean Corpuscular Volume 89.6 fL (80.0-100.0); Monocytes # (auto) 0.9 10 ^3/uL (0-1.3); Monocytes % (auto) 7.6 % (0.0-12.0); Neutrophils # (auto) 9.6 10 ^3/uL (1.6-8.6); Neutrophils % (auto) 78.6 % (37.0-80.0); Nucleated Red Blood Cells % 0.1 %; Platelet Count (auto) 403 10^3/uL (140-450); Red Blood Cells 3.67 10^6/uL (4.5-5.90); Red Cell Distribution Width 13.5 % (11.8-14.3); White Blood Cell 12.2 10^3/uL (4.4-10.8)
[2020-08-13 11:17] LABS: Albumin 1.9 g/dL (3.4-5.0); Calcium 8.4 mg/dL (8.5-10.1); Magnesium 2.6 mg/dL (1.6-2.6); Potassium 3.4 mmol/L (3.5-5.1)
[2020-08-13 11:21] LABS: BUN/Creatinine Ratio 10.2; Bilirubin, Total 0.4 mg/dL (0.2-1.0); Total Protein 6.4 g/dL (6.4-8.2)
[2020-08-13 13:00] VITALS: BP 122/67
[2020-08-13] MEDS ORDERED: POTASSIUM EFFERVESENT TAB 25 MEQ PO ONE (15:15)
[2020-08-13] MEDS ORDERED: MORPHINE SULF INJ 2 MG/ML SYRINGE 1ML IV PRN (15:15)
[2020-08-13 17:00] VITALS: BP_SYST 109; BP_SYST 122; BP_DIAS 67; BP_DIAS 70
[2020-08-13 22:00] VITALS: BP 114/66
[2020-08-13] MEDS: DONEPEZIL HYDROCHLORIDE 5 MG TAB PO SCH (22:10)
[2020-08-14] MEDS: ACETAMINOPHEN 325 MG TAB PO PRN (02:36)
[2020-08-14 05:00] VITALS: BP 119/61
[2020-08-14] MEDS: AMPICILLIN & SULBACTAM SODIUM 3 GM in SODIUM CHL 0.9% 100 ML IV SCH ×3 (05:33→21:25)
[2020-08-14 07:52] LABS: Basophils # (auto) 0.1 10 ^3/uL (0-0.2); Basophils % (auto) 0.4 % (0.0-2.0); Eosinophils # (auto) 0.2 10 ^3/uL (0-0.8); Eosinophils % (auto) 1.5 % (0.0-7.0); Hematocrit 32.2 % (41.0-53.0); Hemoglobin 10.4 g/dL (13.5-17.5); Lymphocytes # (auto) 1.4 10 ^3/uL (0.4-5.4); Lymphocytes % (auto) 12.1 % (10.0-50.0); Mean Corpuscular Hemoglobin 28.9 pg (28.0-32.0); Mean Corpuscular Hgb Conc. 32.2 g/dL (32.0-36.0); Mean Corpuscular Volume 89.9 fL (80.0-100.0); Monocytes # (auto) 0.8 10 ^3/uL (0-1.3); Monocytes % (auto) 6.6 % (0.0-12.0); Neutrophils # (auto) 9.2 10 ^3/uL (1.6-8.6); Neutrophils % (auto) 79.4 % (37.0-80.0); Platelet Count (auto) 368 10^3/uL (140-450); Red Blood Cells 3.58 10^6/uL (4.5-5.90); Red Cell Distribution Width 13.7 % (11.8-14.3); White Blood Cell 11.6 10^3/uL (4.4-10.8)
[2020-08-14 08:00] VITALS: BP 127/70
[2020-08-14 08:09] LABS: Albumin 1.9 g/dL (3.4-5.0); Calcium 8.4 mg/dL (8.5-10.1); Potassium 3.3 mmol/L (3.5-5.1)
[2020-08-14 08:14] LABS: BUN/Creatinine Ratio 13.6; Bilirubin, Total 0.5 mg/dL (0.2-1.0); Total Protein 6.4 g/dL (6.4-8.2)
[2020-08-14] MEDS: METOPROLOL TARTRATE 25 MG TAB PO SCH ×2 (09:43→22:23)
[2020-08-14] MEDS: MEMANTINE HCL 5 MG TAB PO SCH (09:43)
[2020-08-14] MEDS: levoFLOXacin 750MG 150 ML IV SCH (09:43)
[2020-08-14] MEDS: Ensure HIGH Protein Chocolate 8oz Bottle PO SCH ×2 (12:31→18:18)
[2020-08-14] MEDS ORDERED: POTASSIUM CHL 20 Meq TABLET PO ONE (13:30)
[2020-08-14] MEDS ORDERED: POTASSIUM EFFERVESENT TAB 25 MEQ PO ONE (15:15)
[2020-08-14] MEDS: DONEPEZIL HYDROCHLORIDE 5 MG TAB PO SCH (22:22)
[2020-08-15] MEDS: ACETAMINOPHEN 325 MG TAB PO PRN (03:47)
[2020-08-15] MEDS: AMPICILLIN & SULBACTAM SODIUM 3 GM in SODIUM CHL 0.9% 100 ML IV SCH ×2 (05:17→12:56)
[2020-08-15 06:07] VITALS: BP 140/77
[2020-08-15 06:27] LABS: Basophils # (auto) 0 10 ^3/uL (0-0.2); Basophils % (auto) 0.4 % (0.0-2.0); Eosinophils # (auto) 0.1 10 ^3/uL (0-0.8); Hemoglobin 11.1 g/dL (13.5-17.5); Lymphocytes # (auto) 1.2 10 ^3/uL (0.4-5.4); Lymphocytes % (auto) 10.1 % (10.0-50.0); Mean Corpuscular Hemoglobin 29.4 pg (28.0-32.0); Mean Corpuscular Hgb Conc. 32.8 g/dL (32.0-36.0); Mean Corpuscular Volume 89.6 fL (80.0-100.0); Monocytes # (auto) 0.8 10 ^3/uL (0-1.3); Monocytes % (auto) 6.4 % (0.0-12.0); Neutrophils # (auto) 9.9 10 ^3/uL (1.6-8.6); Neutrophils % (auto) 82.1 % (37.0-80.0); Platelet Count (auto) 379 10^3/uL (140-450); Red Blood Cells 3.79 10^6/uL (4.5-5.90); Red Cell Distribution Width 13.5 % (11.8-14.3); White Blood Cell 12.1 10^3/uL (4.4-10.8)
[2020-08-15 06:59] LABS: Potassium 3.6 mmol/L (3.5-5.1)
[2020-08-15 07:08] LABS: Albumin 2.1 g/dL (3.4-5.0); BUN/Creatinine Ratio 12.2; Bilirubin, Total 0.7 mg/dL (0.2-1.0); Calcium 8.6 mg/dL (8.5-10.1); Total Protein 6.9 g/dL (6.4-8.2)
[2020-08-15 09:00] VITALS: BP 119/69
[2020-08-15] MEDS: Ensure HIGH Protein Chocolate 8oz Bottle PO SCH ×3 (10:05→19:59)
[2020-08-15] MEDS: levoFLOXacin 750MG 150 ML IV SCH (10:05)
[2020-08-15] MEDS: MEMANTINE HCL 5 MG TAB PO SCH (10:06)
[2020-08-15] MEDS: METOPROLOL TARTRATE 25 MG TAB PO SCH ×2 (10:07→22:27)
[2020-08-15] MEDS ORDERED: FLORASTOR (S. BOULARDII) 250 MG CAP PO ONE (11:08)
[2020-08-15] MEDS: D5W/SOD CHL 0.45% 1,000 ML IV SCH (12:49)
[2020-08-15 13:00] VITALS: BP 111/58
[2020-08-15] MEDS ORDERED: LINEZOLID 600MG/300ML 300 ML IV SCH (16:00)
[2020-08-15 17:00] VITALS: BP 131/76
[2020-08-15] MEDS: MEROPENEM 1GM IVPB 100 ML IV SCH (19:59)
[2020-08-15] MEDS: LINEZOLID 600MG/300ML 300 ML IV SCH (22:26)
[2020-08-15] MEDS: DONEPEZIL HYDROCHLORIDE 5 MG TAB PO SCH (22:26)
[2020-08-16] MEDS: D5W/SOD CHL 0.45% 1,000 ML IV SCH ×2 (00:35→15:18)
[2020-08-16 05:00] VITALS: BP 137/82
[2020-08-16 05:58] LABS: Basophils # (auto) 0 10 ^3/uL (0-0.2); Basophils % (auto) 0.3 % (0.0-2.0); Eosinophils # (auto) 0.2 10 ^3/uL (0-0.8); Eosinophils % (auto) 1.8 % (0.0-7.0); Hematocrit 32.1 % (41.0-53.0); Hemoglobin 10.1 g/dL (13.5-17.5); Lymphocytes # (auto) 1.2 10 ^3/uL (0.4-5.4); Lymphocytes % (auto) 10.2 % (10.0-50.0); Mean Corpuscular Hemoglobin 28.5 pg (28.0-32.0); Mean Corpuscular Hgb Conc. 31.6 g/dL (32.0-36.0); Mean Corpuscular Volume 89.9 fL (80.0-100.0); Monocytes # (auto) 0.8 10 ^3/uL (0-1.3); Monocytes % (auto) 6.3 % (0.0-12.0); Neutrophils % (auto) 81.4 % (37.0-80.0); Platelet Count (auto) 330 10^3/uL (140-450); Red Blood Cells 3.56 10^6/uL (4.5-5.90); Red Cell Distribution Width 13.4 % (11.8-14.3); White Blood Cell 12.3 10^3/uL (4.4-10.8)
[2020-08-16] MEDS: MEROPENEM 1GM IVPB 100 ML IV SCH ×2 (05:59→18:09)
[2020-08-16 06:16] LABS: Calcium 8.4 mg/dL (8.5-10.1); Potassium 3.2 mmol/L (3.5-5.1)
[2020-08-16 06:22] LABS: Albumin 1.8 g/dL (3.4-5.0); BUN/Creatinine Ratio 10.7; Bilirubin, Total 0.3 mg/dL (0.2-1.0); Magnesium 2.8 mg/dL (1.6-2.6); Total Protein 6.2 g/dL (6.4-8.2)
[2020-08-16 08:59] VITALS: BP 134/75
[2020-08-16] MEDS: Ensure HIGH Protein Chocolate 8oz Bottle PO SCH ×3 (10:17→18:09)
[2020-08-16] MEDS: LINEZOLID 600MG/300ML 300 ML IV SCH ×2 (10:18→22:11)
[2020-08-16] MEDS: FLORASTOR (S. BOULARDII) 250 MG CAP PO SCH (10:23)
[2020-08-16] MEDS: METOPROLOL TARTRATE 25 MG TAB PO SCH ×2 (10:24→22:12)
[2020-08-16] MEDS: MEMANTINE HCL 5 MG TAB PO SCH (10:25)
[2020-08-16 13:00] VITALS: BP 133/67
[2020-08-16] MEDS: POTASSIUM CHL 20MEQ/100ML 100 ML IV SCH ×2 (15:20→16:54)
[2020-08-16 16:53] VITALS: BP 130/62
[2020-08-16 20:44] VITALS: BP 128/66
[2020-08-16] MEDS: DONEPEZIL HYDROCHLORIDE 5 MG TAB PO SCH (22:12)
[2020-08-17] VITALS: BP 149/79
[2020-08-17] MEDS: D5W/SOD CHL 0.45% 1,000 ML IV SCH (03:15)
[2020-08-17 05:00] VITALS: BP 137/74
[2020-08-17 05:48] LABS: Basophils # (auto) 0.1 10 ^3/uL (0-0.2); Basophils % (auto) 0.5 % (0.0-2.0); Eosinophils # (auto) 0.4 10 ^3/uL (0-0.8); Eosinophils % (auto) 3.5 % (0.0-7.0); Hematocrit 31.5 % (41.0-53.0); Lymphocytes # (auto) 1.6 10 ^3/uL (0.4-5.4); Lymphocytes % (auto) 15.7 % (10.0-50.0); Mean Corpuscular Hemoglobin 28.4 pg (28.0-32.0); Mean Corpuscular Hgb Conc. 31.8 g/dL (32.0-36.0); Mean Corpuscular Volume 89.4 fL (80.0-100.0); Monocytes # (auto) 0.6 10 ^3/uL (0-1.3); Monocytes % (auto) 6.1 % (0.0-12.0); Neutrophils # (auto) 7.5 10 ^3/uL (1.6-8.6); Neutrophils % (auto) 74.2 % (37.0-80.0); Platelet Count (auto) 300 10^3/uL (140-450); Red Blood Cells 3.52 10^6/uL (4.5-5.90); Red Cell Distribution Width 13.7 % (11.8-14.3); White Blood Cell 10.1 10^3/uL (4.4-10.8)
[2020-08-17] MEDS: MEROPENEM 1GM IVPB 100 ML IV SCH (06:05)
[2020-08-17 06:11] LABS: Calcium 8.1 mg/dL (8.5-10.1)
[2020-08-17 06:13] LABS: BUN/Creatinine Ratio 14.4
[2020-08-17 09:00] VITALS: BP 132/67
[2020-08-17] MEDS ORDERED: POTASSIUM CHL 20 Meq TABLET PO ONE (09:30)
[2020-08-17] MEDS: Ensure HIGH Protein Chocolate 8oz Bottle PO SCH (10:40)
[2020-08-17] MEDS: FLORASTOR (S. BOULARDII) 250 MG CAP PO SCH (10:40)
[2020-08-17] MEDS: METOPROLOL TARTRATE 25 MG TAB PO SCH (10:41)
[2020-08-17] MEDS: MEMANTINE HCL 5 MG TAB PO SCH (10:49)
[2020-08-17] MEDS: LINEZOLID 600MG/300ML 300 ML IV SCH (11:03)
[2020-08-17 13:00] VITALS: BP 135/70
[2020-08-17] MEDS ORDERED: POTASSIUM EFFERVESENT TAB 25 MEQ PO ONE (13:00)
[2020-08-17] MEDS ORDERED: SACC250C PO (14:14)
[2020-08-17] MEDS ORDERED: LEVO500T21 PO (14:14)
[2020-08-17] MEDS ORDERED: AMPI500C8 PO (14:14)
[2020-08-17] MEDS ORDERED: MEMA5TAB2 PO (14:14)
[2020-08-17] MEDS ORDERED: MET25T PO (14:14)
[2020-08-17] MEDS ORDERED: NUTR-559 PO (14:14)
[2020-08-17 16:38] VITALS: BP 135/70
== END 2020-08-17 19:00 | disposition home health service (06) | DRG 853 ==
LOC: EDBD 19:31 → ER 19:31 → TELE 19:32 → TELE-WESTW 07-30 20:49
PROVIDERS: ADMIT Hospitalist; ATTEND Internal Medicine
PROC: 0FT44ZZ Resection of Gallbladder, Percutaneous Endoscopic Approach (ICD-10-PCS; principal; 2020-08-02 10:24)
PROC: BF141ZZ Fluoroscopy of Gallbladder, Bile Ducts and Pancreatic Ducts using Low Osmolar Contrast (ICD-10-PCS; 2020-08-10)
PROC: 0F798DZ Dilation of Common Bile Duct with Intraluminal Device, Via Natural or Artificial Opening Endoscopic (ICD-10-PCS; 2020-08-10)
DX: A41.9 Sepsis, unspecified organism (principal); J69.0 Pneumonitis due to inhalation of food and vomit; J96.01 Acute respiratory failure with hypoxia; K65.9 Peritonitis, unspecified; N17.0 Acute kidney failure with tubular necrosis; J44.0 Chronic obstructive pulmonary disease with (acute) lower respiratory infection; N13.30 Unspecified hydronephrosis; K82.A2 Perforation of gallbladder in cholecystitis; S09.90XA Unspecified injury of head, initial encounter; K72.90 Hepatic failure, unspecified without coma; E78.5 Hyperlipidemia, unspecified; J44.9 Chronic obstructive pulmonary disease, unspecified; I25.10 Atherosclerotic heart disease of native coronary artery without angina pectoris; F03.90 Unspecified dementia, unspecified severity, without behavioral disturbance, psychotic disturbance, mood disturbance, and anxiety; I25.2 Old myocardial infarction; K57.30 Diverticulosis of large intestine without perforation or abscess without bleeding; E87.6 Hypokalemia; K59.00 Constipation, unspecified; F02.80 Dementia in other diseases classified elsewhere, unspecified severity, without behavioral disturbance, psychotic disturbance, mood disturbance, and anxiety; I11.0 Hypertensive heart disease with heart failure; K40.90 Unilateral inguinal hernia, without obstruction or gangrene, not specified as recurrent; K83.8 Other specified diseases of biliary tract; M48.02 Spinal stenosis, cervical region; M50.31 Other cervical disc degeneration, high cervical region; N32.89 Other specified disorders of bladder; I50.9 Heart failure, unspecified; J84.112 Idiopathic pulmonary fibrosis; K82.A1 Gangrene of gallbladder in cholecystitis; Z20.828 Contact with and (suspected) exposure to other viral communicable diseases; Z79.899 Other long term (current) drug therapy; Z82.49 Family history of ischemic heart disease and other diseases of the circulatory system; Z86.73 Personal history of transient ischemic attack (TIA), and cerebral infarction without residual deficits; Z90.49 Acquired absence of other specified parts of digestive tract; W18.30XA Fall on same level, unspecified, initial encounter; Y93.89 Activity, other specified; Y92.89 Other specified places as the place of occurrence of the external cause; Y99.0 Civilian activity done for income or pay; B95.2 Enterococcus as the cause of diseases classified elsewhere; B96.89 Other specified bacterial agents as the cause of diseases classified elsewhere
CPT/HCPCS: 36415; 70450; 70551; 71045; 71250; 72125; 74018; 74176; 74177; 76001; 76705; 78226; 80048; 80053; 80061; 80076; 81001; 82140; 82247; 82550; 82607; 82746; 83036; 83690; 83735; 83880; 84132; 84443; 84484; 85007; 85025; 85027; 85379; 85610; 85730; 86704; 86706; 86708; 86738; 86803; 86850; 86900; 86901; 87040; 87070; 87075; 87077; 87081; 87086; 87186; 87205; 87278; 87340; 87426; 87804; 92610; 93005; 94668; 95819; 97110; 97116; 97530; G0378; J0696; J1100; J1956; J2185; J2250; J2405; J2543; J2704; J3480; J3490

== ENCOUNTER 2020-09-11 18:36 | Inpatient (IN) | payer OTHER ==
[~2020-09-11] VITALS: Ht 175.3 cm; Wt 68.0 kg
[~2020-09-11 18:36] MED LIST changes: +AMPI500C8 PO; -ATOR40TA52 PO; -DONE5TAB11 PO; +DONE5TAB31 PO; +LEVO500T21 PO; +MEMA5TAB2 PO; +MET25T PO; -METO25TA5 PO; +MULTCAP45 PO; +NUTR-559 PO; +SACC250C PO
[2020-09-11] MEDS ORDERED: SODIUM CHLORIDE 0.9% 500 ML IVB ONE (19:00)
[2020-09-11 23:13] LABS: Basophils # (auto) 0 10 ^3/uL (0-0.2); Basophils % (auto) 0.3 % (0.0-2.0); Eosinophils # (auto) 0.1 10 ^3/uL (0-0.8); Eosinophils % (auto) 0.7 % (0.0-7.0); Hematocrit 35.6 % (41.0-53.0); Hemoglobin 11.2 g/dL (13.5-17.5); Lymphocytes # (auto) 1.1 10 ^3/uL (0.4-5.4); Lymphocytes % (auto) 6.4 % (10.0-50.0); Mean Corpuscular Hemoglobin 27.6 pg (28.0-32.0); Mean Corpuscular Hgb Conc. 31.4 g/dL (32.0-36.0); Monocytes # (auto) 0.8 10 ^3/uL (0-1.3); Monocytes % (auto) 4.3 % (0.0-12.0); Neutrophils # (auto) 15.4 10 ^3/uL (1.6-8.6); Neutrophils % (auto) 88.3 % (37.0-80.0); Platelet Count (auto) 264 10^3/uL (140-450); Red Blood Cells 4.05 10^6/uL (4.5-5.90); Red Cell Distribution Width 13.9 % (11.8-14.3); White Blood Cell 17.4 10^3/uL (4.4-10.8)
[2020-09-11 23:43] LABS: Anion Gap 12 (5-15); Calcium 8.4 mg/dL (8.5-10.1); Carbon Dioxide 19 mmol/L (21-32); Chloride 106 mmol/L (98-107); Glucose 101 mg/dL (74-106); Magnesium 3.6 mg/dL (1.6-2.6); Sodium 137 mmol/L (136-145)
[2020-09-11 23:48] LABS: Potassium 6.4 mmol/L (3.5-5.1)
[2020-09-11 23:49] LABS: Blood Urea Nitrogen 113 mg/dL (7-18)
[2020-09-11 23:50] LABS: Alanine Aminotransferase 74 U/L (16-61); Alkaline Phosphatase 140 U/L (45-117); Aspartate Aminotransferase 46 U/L (15-37); BUN/Creatinine Ratio 8.7; Bilirubin, Total 0.3 mg/dL (0.2-1.0); GFR African American 5 mL/min; GFR Non-African American 4 mL/min; Total Protein 7.8 g/dL (6.4-8.2)
[2020-09-12] MEDS ORDERED: SODIUM CHLORIDE 0.9% 500 ML IV ONE (00:30)
[2020-09-12] MEDS ORDERED: DEXTROSE (50%) 50ML SYRG IV ONE (00:30)
[2020-09-12] MEDS ORDERED: ALBUTEROL SULF HFA 90MCG INH 200DOSE IN PRN (00:30)
[2020-09-12] MEDS ORDERED: ACETAMINOPHEN 325 MG TAB PO PRN (00:30)
[2020-09-12] MEDS ORDERED: SODIUM BICARBONATE 8.4 % INJ 50ML VIAL IV ONE (00:30)
[2020-09-12] MEDS ORDERED: ONDANSETRON HCL 4 MG/2 ML VIAL IV PRN (00:30)
[2020-09-12] MEDS ORDERED: MORPHINE SULF INJ 2 MG/ML SYRINGE 1ML IV PRN (00:30)
[2020-09-12] MEDS ORDERED: SODIUM ZIRCONIUM CYCL 10 GM PAK PO ONE (00:30)
[2020-09-12] MEDS ORDERED: NITROGLYCERIN 0.4 MG SL TAB SL PRN (00:30)
[2020-09-12] MEDS ORDERED: InsuLIN REG 1unit/0.01ml Soln (100units/ml) IV ONE (00:30)
[2020-09-12] MEDS ORDERED: CALCIUM GLUC 4.65meq/50ml D5AE 50 ML IV ONE (00:30)
[2020-09-12] MEDS ORDERED: AZITHROMYCIN 500MG/D5WorNS 250ml IV SCH (01:00)
[2020-09-12] MEDS ORDERED: DexAMETHasone SOD PHOS 10MG/1ML VIAL INJ IV SCH (01:00)
[2020-09-12 01:10] LABS: Anion Gap 11 (5-15); Calcium 8.3 mg/dL (8.5-10.1); Carbon Dioxide 20 mmol/L (21-32); Chloride 107 mmol/L (98-107); Glucose 100 mg/dL (74-106); Magnesium 3.4 mg/dL (1.6-2.6); Sodium 138 mmol/L (136-145)
[2020-09-12 01:19] LABS: GFR African American 5 mL/min; GFR Non-African American 4 mL/min; Lactate Dehydrogenase 233 U/L (87-241)
[2020-09-12 01:20] LABS: Potassium 5.9 mmol/L (3.5-5.1)
[2020-09-12 01:37] LABS: CRP High Sensitivity > 19.0 mg/dL (< 0.3)
[2020-09-12 01:37] LABS: BUN/Creatinine Ratio 9.1; Blood Urea Nitrogen 118 mg/dL (7-18); CRP High Sensitivity > 19 mg/dL (< 0.3)
[2020-09-12] MEDS: SODIUM CHLORIDE 0.9% 1,000 ML IV SCH ×2 (01:58→20:51)
[2020-09-12 06:18] LABS: Urine Bacteria FEW /hpf (None Seen); Urine Blood Negative /uL (Negative); Urine Specific Gravity 1.009 (1.001-1.035); Urine WBC 10 /hpf (0 - 3)
--- NOTE | 2020-09-12 08:48 | NUR ---
Respiratory note: PT ASSESSED HR 84 RR 18 SPO2 96% ON RA. COVID-19 RESULTS PENDING. RN AWARE TO HAVE RT PAGED IF NEEDED.
[2020-09-12 09:58] LABS: BUN/Creatinine Ratio 10.2; Calcium 8.7 mg/dL (8.5-10.1); Potassium 5.1 mmol/L (3.5-5.1)
[2020-09-12] MEDS ORDERED: CHOLECALCIFEROL (VITD3) 2,000 UNIT CAP PO SCH (10:00)
[2020-09-12] MEDS ORDERED: ASCORBIC ACID 1,000 MG TAB PO SCH (10:00)
[2020-09-12] MEDS ORDERED: ZINC SULFATE 220mg CAP or TAB PO SCH (10:00)
[2020-09-12] MEDS ORDERED: ENOXAPARIN SOD 40 MG/0.4 ML SYRINGE SC SCH (10:00)
[2020-09-12] MEDS ORDERED: ECHI450C PO (11:02)
[2020-09-12] MEDS ORDERED: OMEG600C2 PO (11:03)
[2020-09-12] MEDS ORDERED: BIOT10004 PO (11:03)
[2020-09-12] MEDS ORDERED: VITA180C PO (11:05)
[2020-09-12] MEDS ORDERED: CHOL20009 PO (11:05)
[2020-09-12] MEDS ORDERED: METO25TA5 PO (11:07)
[2020-09-12] MEDS ORDERED: ASCO500T11 PO (11:07)
[2020-09-12] MEDS ORDERED: B-COTAB59 PO (11:08)
[2020-09-12] MEDS ORDERED: cefTRIAXone 1GM/50ML D5W 50 ML IV ONE (13:00)
[2020-09-12] MEDS: LINEZOLID 600MG/300ML 300 ML IV SCH (20:00)
[2020-09-12] MEDS ORDERED: MEROPENEM 500MG IVPB 50 ML IV SCH (22:00)
[2020-09-13 05:24] LABS: Basophils # (auto) 0 10 ^3/uL (0-0.2); Eosinophils # (auto) 0 10 ^3/uL (0-0.8); Hematocrit 32.6 % (41.0-53.0); Hemoglobin 10.4 g/dL (13.5-17.5); Lymphocytes % (auto) 6.3 % (10.0-50.0); Mean Corpuscular Hemoglobin 28.1 pg (28.0-32.0); Mean Corpuscular Hgb Conc. 31.9 g/dL (32.0-36.0); Mean Corpuscular Volume 87.9 fL (80.0-100.0); Monocytes # (auto) 0.7 10 ^3/uL (0-1.3); Monocytes % (auto) 4.6 % (0.0-12.0); Neutrophils # (auto) 13.6 10 ^3/uL (1.6-8.6); Neutrophils % (auto) 89.1 % (37.0-80.0); Platelet Count (auto) 312 10^3/uL (140-450); Red Blood Cells 3.71 10^6/uL (4.5-5.90); Red Cell Distribution Width 13.8 % (11.8-14.3); White Blood Cell 15.3 10^3/uL (4.4-10.8)
[2020-09-13 05:44] LABS: Albumin 1.9 g/dL (3.4-5.0); Calcium 8.5 mg/dL (8.5-10.1); Potassium 4.3 mmol/L (3.5-5.1)
[2020-09-13 05:48] LABS: BUN/Creatinine Ratio 18.9; Bilirubin, Total 0.2 mg/dL (0.2-1.0); Total Protein 6.9 g/dL (6.4-8.2)
[2020-09-13] MEDS ORDERED: cefTRIAXone 1GM/50ML D5W 50 ML IV SCH (09:00)
[2020-09-13] MEDS: SODIUM CHLORIDE 0.9% 1,000 ML IV SCH (09:31)
[2020-09-13] MEDS: LINEZOLID 600MG/300ML 300 ML IV SCH ×2 (09:31→20:27)
[2020-09-13] MEDS ORDERED: ENOXAPARIN SOD 40 MG/0.4 ML SYRINGE SC SCH (10:00)
[2020-09-13] MEDS ORDERED: ENOXAPARIN SOD 80 MG/0.8ML SYRINGE SC SCH (10:00)
--- NOTE | 2020-09-13 16:04 | NUR ---
Assessment Patient is an 89-year-old male who is confused. Assessment was completed with patient daughter Sri. Per patient daughter (Sri [phone]), prior to admission patient reside home with her and functioned with assistance. Per patient daughter, patient is retired and receiving social security benefits. Per patient daughter, she has 24 hours care for her dad. Per patient daughter, patient will return home post discharge. Per patient daughter, she and her mother is her dad support system. Per patient daughter, patient has a living trust and POA completed forms. Advised Sri there is a social service consult for hospice evaluation. Per Sri she would like [facility] to be contact. Informed Sri she has the right to participate in all discharge planning. Sri verbalized understanding and agrees to discharge plan. Faxed clinical information to [facility]. Per Nicky with [facility] patient has been accepted and service to start upon /. Farhana CRUZ, no call back. Addendum: 09/13/20 at 1610 by OZZY MCDONALD Amended: Links added.
[2020-09-13] MEDS: MEROPENEM 500MG IVPB 50 ML IV SCH (22:00)
[2020-09-14] MEDS: SODIUM CHLORIDE 0.9% 1,000 ML IV SCH (02:30)
[2020-09-14] MEDS: LINEZOLID 600MG/300ML 300 ML IV SCH (08:00)
[2020-09-14] MEDS ORDERED: ENOXAPARIN SOD 30 MG/0.3 ML SYRINGE SC SCH (10:00)
[2020-09-14] MEDS: MEROPENEM 500MG IVPB 50 ML IV SCH (10:00)
--- NOTE | 2020-09-14 15:00 | NUR ---
D/C planning Nicky with [facility] advised me transportation has been arranged with [facility] via gurney with oxygen between 15:30-16:00. Informed ER Nurse Lg.
[2020-09-14 18:00] VITALS: BP 138/79
== END 2020-09-14 18:36 | disposition hospice, home (50) | DRG 871 ==
LOC: EDUNIT# 18:36 → EDBD 18:36 → ER 18:36 → TELE 09-12 00:37
PROVIDERS: ADMIT Nurse Practitioner; ATTEND Internal Medicine
DX: A41.9 Sepsis, unspecified organism (principal); J18.9 Pneumonia, unspecified organism; G92 Toxic encephalopathy; N17.0 Acute kidney failure with tubular necrosis; J44.0 Chronic obstructive pulmonary disease with (acute) lower respiratory infection; R65.20 Severe sepsis without septic shock; E87.5 Hyperkalemia; E78.5 Hyperlipidemia, unspecified; F03.90 Unspecified dementia, unspecified severity, without behavioral disturbance, psychotic disturbance, mood disturbance, and anxiety; I25.10 Atherosclerotic heart disease of native coronary artery without angina pectoris; Z20.828 Contact with and (suspected) exposure to other viral communicable diseases; I48.91 Unspecified atrial fibrillation; Z51.5 Encounter for palliative care; Z74.01 Bed confinement status; I12.9 Hypertensive chronic kidney disease with stage 1 through stage 4 chronic kidney disease, or unspecified chronic kidney disease; N18.30 Chronic kidney disease, stage 3 unspecified; Z90.49 Acquired absence of other specified parts of digestive tract
CPT/HCPCS: 36415; 70450; 71045; 80048; 80053; 80320; 81001; 82728; 82962; 83036; 83605; 83615; 83735; 84484; 85025; 85379; 86141; 87040; 87086; 87426; 96361; 96365; 96375; 99291; G0378; J0610; J0696; J1100; J1815; J2185